=== PATIENT | male | born 1940 | race African-American/Black ===

== ENCOUNTER 2020-04-30 16:24 | Observation (INO) ==
[2020-04-30 17:26] LABS: Basophils % 0.4 % (0.0-0.8); Eosinophils # 0.1 10*3/uL (0.0-0.87); Eosinophils % 0.8 % (0.00-10.9); Hematocrit 43.3 VOL% (42.0-52.0); Hemoglobin 14.4 GM/DL (14.0-18.0); Immature Granulocytes % 0.3 %; Immature Granulocytes Absolute 0.03 #; Lymphocytes # 1.2 10*3/uL (1.4-4.0); Lymphocytes % 12.6 % (21.2-54.2); Mean Corpuscular HGB Conc 33.3 GM/DL (32-36); Mean Corpuscular Volume 83.6 FL (87-102); Mean Platelet Volume 11.2 FL (9.6-12.0); Monocytes % 6.9 % (1.7-12.7); Platelet Count 217 T/CUMM (130-400); Red Blood Count 5.18 MC/CUMM (3.8-5.5); Red Cell Distribution Width 14.1 % (9.3-17.3); White Blood Count 9.7 T/CUMM (4-12)
[2020-04-30] MEDS ORDERED: hydrALAZINE 20 MG/1 ML VIAL IV STA ×2 (17:29→18:43)
[2020-04-30] MEDS ORDERED: hydrALAZINE 20 MG/1 ML VIAL ONE (17:30)
[2020-04-30 17:44] LABS: Albumin 3.4 G/DL (3.4-5.0); Bilirubin,Total 0.6 MG/DL (0.2-1.0); Calcium 8.9 MG/DL (8.5-10.1); Osmolality,Calculated 291.5 MOS/KG (273-304); Total Protein 6.7 G/DL (6.4-8.3)
[2020-04-30] MEDS ORDERED: INSULIN LISPRO 100 UNIT/ML SUBCUT STA ×2 (17:54→19:12)
[2020-04-30] MEDS ORDERED: INSULIN LISPRO 100 UNIT/ML ONE (17:57)
[2020-04-30] MEDS: SODIUM CHLORIDE 0.9% 1,000 ML IV SCH (18:03)
[2020-04-30] MEDS ORDERED: DEXTROSE 10% 250 ML BAG IV PRN (18:52)
[2020-04-30] MEDS ORDERED: ONDANSETRON 4 MG/2 ML VIAL IV PRN (18:52)
[2020-04-30] MEDS ORDERED: ACETAMINOPHEN 325 MG TABLET PO PRN (18:52)
[2020-04-30] MEDS ORDERED: GLUCAGON 1 MG VIAL IM PRN (18:52)
[2020-04-30] MEDS ORDERED: DOCUSATE SODIUM 100 MG CAPSULE PO PRN (18:52)
[2020-04-30] MEDS ORDERED: DEXTROSE 5% NACL 0.9% 1,000 ML IV SCH (19:00)
[2020-04-30] MEDS ORDERED: LURASIDONE 40 MG TABLET PO SCH (21:00)
[2020-04-30] MEDS ORDERED: INSULIN GLARGINE 100 UNIT/ML SUBCUT SCH (21:00)
[2020-04-30] MEDS: INSULIN REGULAR 100 UNIT/ML SUBCUT SCH (23:01)
[2020-04-30] MEDS: ENOXAPARIN 30 MG/0.3 ML SYRINGE SUBCUT SCH (23:07)
[2020-04-30] MEDS: ASCORBIC ACID 500 MG TABLET PO SCH (23:08)
[2020-04-30] MEDS: ZALEPLON 5 MG CAPSULE PO PRN (23:08)
[2020-04-30] MEDS: metFORMIN 500 MG TABLET PO SCH (23:08)
[2020-04-30] MEDS: METOPROLOL TARTRATE 100 MG TABLET PO SCH (23:09)
[2020-04-30] MEDS: MAGNESIUM OXIDE 400 MG TABLET PO SCH (23:09)
[2020-04-30] MEDS: OXYBUTYNIN 5 MG TABLET PO SCH (23:10)
[2020-05-01] MEDS: SODIUM CHLORIDE 0.9% 1,000 ML IV SCH ×3 (02:47→16:23)
[2020-05-01 07:15] LABS: Basophils # 0.1 10*3/uL (0.0-0.2); Basophils % 0.5 % (0.0-0.8); Eosinophils # 0.1 10*3/uL (0.0-0.87); Eosinophils % 1.1 % (0.00-10.9); Hematocrit 39.4 VOL% (42.0-52.0); Hemoglobin 13.8 GM/DL (14.0-18.0); Immature Granulocytes % 0.6 %; Immature Granulocytes Absolute 0.06 #; Lymphocytes # 1.9 10*3/uL (1.4-4.0); Lymphocytes % 18.8 % (21.2-54.2); Mean Corpuscular Volume 81.4 FL (87-102); Monocytes % 8.3 % (1.7-12.7); Neutrophils % 70.7 % (38.7-73.9); Platelet Count 196 T/CUMM (130-400); Red Blood Count 4.84 MC/CUMM (3.8-5.5); Red Cell Distribution Width 14.1 % (9.3-17.3); White Blood Count 10.1 T/CUMM (4-12)
[2020-05-01 07:31] LABS: Bilirubin,Total 0.6 MG/DL (0.2-1.0); Calcium 8.5 MG/DL (8.5-10.1); Osmolality,Calculated 291.8 MOS/KG (273-304); Total Protein 6.4 G/DL (6.4-8.3)
[2020-05-01] MEDS: INSULIN REGULAR 100 UNIT/ML SUBCUT SCH ×4 (07:46→20:45)
[2020-05-01] MEDS ORDERED: SIMVASTATIN 40 MG TABLET PO SCH (09:00)
[2020-05-01] MEDS: SIMETHICONE CHEW 80 MG TABLET PO SCH ×3 (09:10→16:21)
[2020-05-01] MEDS: ASPIRIN 325 MG TABLET PO SCH (09:10)
[2020-05-01] MEDS: CHOLECALCIFEROL 1,000 UNIT TABLET PO SCH (09:10)
[2020-05-01] MEDS: metFORMIN 500 MG TABLET PO SCH ×2 (09:10→20:46)
[2020-05-01] MEDS: METOPROLOL TARTRATE 100 MG TABLET PO SCH ×2 (09:10→20:44)
[2020-05-01] MEDS: OXYBUTYNIN 5 MG TABLET PO SCH ×3 (09:11→20:44)
[2020-05-01] MEDS: FUROSEMIDE 40 MG TABLET PO SCH (09:11)
[2020-05-01] MEDS: ASCORBIC ACID 500 MG TABLET PO SCH ×2 (09:11→20:44)
[2020-05-01] MEDS: MAGNESIUM OXIDE 400 MG TABLET PO SCH ×2 (09:12→20:44)
[2020-05-01] MEDS ORDERED: INSULIN REGULAR 100 UNIT/ML SUBCUT ONE (09:42)
[2020-05-01] MEDS ORDERED: SODIUM CHLORIDE 0.9% 1,000 ML IV SCH (10:00)
[2020-05-01] MEDS ORDERED: INSULIN NPH 100 UNIT/ML SUBCUT ONE (11:11)
[2020-05-01] MEDS ORDERED: INSULIN GLARGINE 100 UNIT/ML SUBCUT SCH ×2 (17:30→21:00)
[2020-05-01] MEDS: ENOXAPARIN 30 MG/0.3 ML SYRINGE SUBCUT SCH (20:43)
[2020-05-01] MEDS: BUDESONIDE/FORMOTEROL 160-4.5 INHALER 6 GM INH SCH (20:51)
[2020-05-01] MEDS ORDERED: TAMSULOSIN 0.4 MG CAPSULE PO SCH (21:00)
[2020-05-01] MEDS ORDERED: LURASIDONE 40 MG TABLET PO SCH (21:00)
[2020-05-01] MEDS ORDERED: HALOPERIDOL 5 MG TABLET PO SCH (21:00)
[2020-05-02] MEDS: ZALEPLON 5 MG CAPSULE PO PRN (00:25)
[2020-05-02] MEDS: SODIUM CHLORIDE 0.9% 1,000 ML IV SCH ×2 (02:41→11:49)
[2020-05-02] MEDS ORDERED: THYROID 60 MG TABLET PO SCH (06:30)
[2020-05-02] MEDS ORDERED: MONTELUKAST 10 MG TABLET PO SCH (09:00)
[2020-05-02] MEDS ORDERED: LOSARTAN 25 MG TABLET PO SCH (09:00)
[2020-05-02] MEDS: MAGNESIUM OXIDE 400 MG TABLET PO SCH (09:07)
[2020-05-02] MEDS: ASPIRIN 325 MG TABLET PO SCH (09:07)
[2020-05-02] MEDS: SIMETHICONE CHEW 80 MG TABLET PO SCH ×2 (09:07→11:49)
[2020-05-02] MEDS: ASCORBIC ACID 500 MG TABLET PO SCH (09:08)
[2020-05-02] MEDS: CHOLECALCIFEROL 1,000 UNIT TABLET PO SCH (09:09)
[2020-05-02] MEDS: metFORMIN 500 MG TABLET PO SCH (09:09)
[2020-05-02] MEDS: METOPROLOL TARTRATE 100 MG TABLET PO SCH (09:09)
[2020-05-02] MEDS: FUROSEMIDE 40 MG TABLET PO SCH (09:09)
[2020-05-02] MEDS: OXYBUTYNIN 5 MG TABLET PO SCH (09:09)
[2020-05-02] MEDS: INSULIN REGULAR 100 UNIT/ML SUBCUT SCH ×2 (09:10→11:49)
[2020-05-02] MEDS: BUDESONIDE/FORMOTEROL 160-4.5 INHALER 6 GM INH SCH (11:00)
[2020-05-02 11:45] VITALS: BP 162/71
[2020-05-02] MEDS ORDERED: SIMVASTATIN 40 MG TABLET PO SCH (21:00)
== END 2020-05-02 12:25 | disposition home or self-care (01) ==
LOC: N.ED 16:24 → N.EDINP 16:24 → N.3E 20:44
PROVIDERS: ADMIT Internal Medicine; ATTEND Internal Medicine

== ENCOUNTER 2021-02-13 10:26 | Inpatient (IN) ==
[2021-02-13 11:15] LABS: Basophils % 0.2 % (0.0-0.8); Hematocrit 35.4 VOL% (42.0-52.0); Hemoglobin 12.2 GM/DL (14.0-18.0); Immature Granulocytes % 0.5 %; Immature Granulocytes Absolute 0.03 #; Lymphocytes # 0.5 10*3/uL (1.4-4.0); Lymphocytes % 9.1 % (21.2-54.2); Mean Corpuscular HGB Conc 34.5 GM/DL (32-36); Mean Platelet Volume 11.2 FL (9.6-12.0); Monocytes % 4.7 % (1.7-12.7); Neutrophils % 85.5 % (38.7-73.9); Platelet Count 144 T/CUMM (130-400); Red Blood Count 4.37 MC/CUMM (3.8-5.5); Red Cell Distribution Width 14.2 % (9.3-17.3); White Blood Count 5.7 T/CUMM (4-12)
[2021-02-13 11:35] LABS: Calcium 7.4 MG/DL (8.5-10.1); Osmolality,Calculated 293.4 MOS/KG (273-304); Potassium 5.3 MMOL/L (3.5-5.1)
[2021-02-13] MEDS ORDERED: LEVOFLOXACIN INJ 500 MG in PREMIX 1 EACH IV STA (11:35)
[2021-02-13] MEDS ORDERED: DEXAMETHASONE 4 MG/1 ML VIAL IV STA (11:38)
[2021-02-13 11:43] LABS: Ferritin 651.5 ng/ml (26-388)
[2021-02-13] MEDS ORDERED: GLUCAGON 1 MG VIAL IM PRN ×2 (12:01→17:05)
[2021-02-13] MEDS ORDERED: ONDANSETRON 4 MG/2 ML VIAL IV PRN (12:01)
[2021-02-13 12:06] LABS: Band Neutrophils 4 % (0-10); Hypochromasia 1+; Lymphocytes 8 % (20-55); Microcytosis 1+; Nucleated Red Blood Cells 1 (0-5); Segmented Neutrophils 85 % (50-85); Total Cells Counted 100
[2021-02-13 12:58] LABS: Risk Ratio 1.98; Thyroid Stimulating Hormone 0.717 uIU/ml (0.358-3.74)
[2021-02-13] MEDS: ENOXAPARIN 40 MG/0.4 ML SYRINGE SUBCUT SCH (14:52)
[2021-02-13] MEDS: cefTRIAXone 1,000 MG in SYRINGE 1 EACH IV SCH (14:52)
[2021-02-13] MEDS: ACETAMINOPHEN 325 MG TABLET PO PRN (14:53)
[2021-02-13] MEDS: CETIRIZINE 10 MG TABLET PO PRN (14:53)
[2021-02-13] MEDS: ASCORBIC ACID 500 MG TABLET PO SCH ×2 (14:53→20:30)
[2021-02-13] MEDS: CHOLECALCIFEROL 1,000 UNIT TABLET PO SCH (14:54)
[2021-02-13] MEDS: ZINC SULFATE 220 MG CAPSULE PO SCH (14:54)
[2021-02-13] MEDS: AZITHROMYCIN INJ 500 MG in SODIUM CHLORIDE 0.9% 250 ML IV SCH (14:54)
[2021-02-13] MEDS: SODIUM CHLORIDE 0.9% 1,000 ML IV SCH (14:57)
[2021-02-13] MEDS ORDERED: REMDESIVIR 200 MG in SODIUM CHLORIDE 0.9% 210 ML IV ONE (17:00)
[2021-02-13] MEDS: INSULIN LISPRO 100 UNIT/ML SUBCUT SCH ×2 (17:03→20:29)
[2021-02-13] MEDS ORDERED: DEXTROSE 50% 25 GM/50 ML VIAL IV PRN (17:05)
[2021-02-13] MEDS: ALBUTEROL INHALER 18 GM INH SCH ×2 (18:54→19:06)
[2021-02-13] MEDS: FAMOTIDINE 20 MG TABLET PO SCH (20:30)
[2021-02-13] MEDS: BENZONATATE 100 MG CAPSULE PO SCH (20:30)
[2021-02-14] MEDS: ALBUTEROL INHALER 18 GM INH SCH ×4 (00:16→18:41)
[2021-02-14] MEDS: INSULIN LISPRO 100 UNIT/ML SUBCUT SCH ×4 (08:08→21:52)
[2021-02-14] MEDS: ASCORBIC ACID 500 MG TABLET PO SCH ×2 (08:37→21:00)
[2021-02-14] MEDS: ZINC SULFATE 220 MG CAPSULE PO SCH (08:37)
[2021-02-14] MEDS: CHOLECALCIFEROL 1,000 UNIT TABLET PO SCH (08:38)
[2021-02-14] MEDS: BENZONATATE 100 MG CAPSULE PO SCH ×2 (08:38→21:00)
[2021-02-14] MEDS: SODIUM CHLORIDE 0.9% 1,000 ML IV SCH (08:45)
[2021-02-14] MEDS: hydrALAZINE 20 MG/1 ML VIAL IV PRN ×2 (11:43→20:00)
[2021-02-14] MEDS: ENOXAPARIN 40 MG/0.4 ML SYRINGE SUBCUT SCH (13:20)
[2021-02-14] MEDS: cefTRIAXone 1,000 MG in SYRINGE 1 EACH IV SCH (13:20)
[2021-02-14] MEDS: DEXAMETHASONE 4 MG/1 ML VIAL IV SCH (13:20)
[2021-02-14] MEDS: AZITHROMYCIN INJ 500 MG in SODIUM CHLORIDE 0.9% 250 ML IV SCH (13:21)
[2021-02-14] MEDS ORDERED: DEXTROMETHORPHAN ER 6 MG/ML 90 ML/BOTTLE PO PRN (16:09)
[2021-02-14] MEDS ORDERED: DOCUSATE SODIUM 100 MG CAPSULE PO PRN (16:11)
[2021-02-14] MEDS: REMDESIVIR 100 MG in SODIUM CHLORIDE 0.9% 100 ML IV SCH (17:03)
[2021-02-14] MEDS ORDERED: guaiFENesin/CODEINE 5 ML LIQUID PO PRN (20:53)
[2021-02-14] MEDS ORDERED: ASCORBIC ACID 500 MG TABLET PO SCH (21:00)
[2021-02-14] MEDS: LURASIDONE 40 MG TABLET PO SCH (21:00)
[2021-02-14] MEDS ORDERED: TAMSULOSIN 0.4 MG CAPSULE PO SCH (21:00)
[2021-02-14] MEDS: FAMOTIDINE 20 MG TABLET PO SCH (21:00)
[2021-02-14] MEDS: METOPROLOL TARTRATE 50 MG TABLET PO SCH (21:00)
[2021-02-14] MEDS: BUDESONIDE/FORMOTEROL 160-4.5 INHALER 6 GM INH SCH (21:00)
[2021-02-14] MEDS: OXYBUTYNIN 5 MG TABLET PO SCH (21:00)
[2021-02-14] MEDS: HALOPERIDOL 5 MG TABLET PO SCH (21:00)
[2021-02-14] MEDS: INSULIN GLARGINE 100 UNIT/ML SUBCUT SCH (21:52)
[2021-02-15] MEDS: ALBUTEROL INHALER 18 GM INH SCH ×7 (01:00→21:02)
[2021-02-15] MEDS: SODIUM CHLORIDE 0.9% 1,000 ML IV SCH (01:36)
[2021-02-15] MEDS: hydrALAZINE 20 MG/1 ML VIAL IV PRN (02:32)
[2021-02-15] MEDS: THYROID 60 MG TABLET PO SCH (06:25)
[2021-02-15] MEDS: BUDESONIDE/FORMOTEROL 160-4.5 INHALER 6 GM INH SCH ×2 (06:25→21:02)
[2021-02-15 06:50] LABS: Basophils % 0.1 % (0.0-0.8); Hemoglobin 13.8 GM/DL (14.0-18.0); Immature Granulocytes % 0.7 %; Immature Granulocytes Absolute 0.08 #; Lymphocytes # 0.6 10*3/uL (1.4-4.0); Lymphocytes % 5.5 % (21.2-54.2); Mean Corpuscular HGB Conc 36.3 GM/DL (32-36); Mean Platelet Volume 12.4 FL (9.6-12.0); Monocytes % 4.9 % (1.7-12.7); Neutrophils % 88.8 % (38.7-73.9); Platelet Count 189 T/CUMM (130-400); Red Blood Count 4.81 MC/CUMM (3.8-5.5); White Blood Count 11.3 T/CUMM (4-12)
[2021-02-15 07:10] LABS: Calcium 7.9 MG/DL (8.5-10.1); Osmolality,Calculated 274.1 MOS/KG (273-304); Potassium 5.5 MMOL/L (3.5-5.1)
[2021-02-15 07:16] LABS: Band Neutrophils 1 % (0-10); Hypochromasia 1+; Lymphocytes 6 % (20-55); Metamyelocytes 1 %; Microcytosis 1+; Segmented Neutrophils 84 % (50-85); Total Cells Counted 100
[2021-02-15 07:17] LABS: Ovalocytes Slight; Target Cells Slight
[2021-02-15 07:18] LABS: Platelet Estimate Adequate
[2021-02-15] MEDS: INSULIN LISPRO 100 UNIT/ML SUBCUT SCH ×3 (08:26→17:51)
[2021-02-15] MEDS ORDERED: SODIUM POLYSTYRENE SULFATE 15 GM/60 ML BOTTLE PO ONE (08:34)
[2021-02-15] MEDS ORDERED: LOSARTAN 25 MG TABLET PO SCH (09:00)
[2021-02-15] MEDS ORDERED: CHOLECALCIFEROL 1,000 UNIT TABLET PO SCH (09:00)
[2021-02-15 09:13] LABS: ABG Base Excess -5.3 MMOL/L (-2.5-2.5); ABG PCO2 22.3 MM HG (35-48); ABG PH 7.474 (7.35-7.45); ABG PO2 53.8 MM HG (80-95); ABG TCO2 16.7 MMOL/L (23-27)
[2021-02-15] MEDS: ASCORBIC ACID 500 MG TABLET PO SCH ×2 (09:44→20:02)
[2021-02-15] MEDS: OXYBUTYNIN 5 MG TABLET PO SCH ×2 (09:44→16:15)
[2021-02-15] MEDS: SIMVASTATIN 80 MG TABLET PO SCH (09:44)
[2021-02-15] MEDS: CHOLECALCIFEROL 1,000 UNIT TABLET PO SCH (09:44)
[2021-02-15] MEDS: BENZONATATE 100 MG CAPSULE PO SCH ×2 (09:44→20:02)
[2021-02-15] MEDS: MONTELUKAST 10 MG TABLET PO SCH (09:44)
[2021-02-15] MEDS: ZINC SULFATE 220 MG CAPSULE PO SCH (09:44)
[2021-02-15] MEDS: METOPROLOL TARTRATE 50 MG TABLET PO SCH ×2 (09:44→20:03)
[2021-02-15] MEDS: ENOXAPARIN 40 MG/0.4 ML SYRINGE SUBCUT SCH (11:15)
[2021-02-15] MEDS: cefTRIAXone 1,000 MG in SYRINGE 1 EACH IV SCH (11:20)
[2021-02-15] MEDS: DEXAMETHASONE 4 MG/1 ML VIAL IV SCH (11:20)
[2021-02-15] MEDS ORDERED: ROCURONIUM 100 MG/10 ML VIAL IV ONE ×2 (11:26→11:48)
[2021-02-15] MEDS ORDERED: ETOMIDATE 20 MG/10 ML VIAL IV ONE (11:26)
[2021-02-15 13:01] LABS: ABG Base Excess -8.8 MMOL/L (-2.5-2.5); ABG HCO3 17.4 MMOL/L (20-26); ABG Oxygen Saturation 91.1 % (95-100); ABG PH 7.239 (7.35-7.45); ABG PO2 72.6 MM HG (80-95); ABG TCO2 16.5 MMOL/L (23-27); Allen Test Positive; Pt O2 Delivery Device Ventilator
[2021-02-15] MEDS: AZITHROMYCIN INJ 500 MG in SODIUM CHLORIDE 0.9% 250 ML IV SCH (14:32)
[2021-02-15 17:05] LABS: ABG Base Excess -8.5 MMOL/L (-2.5-2.5); ABG HCO3 17.4 MMOL/L (20-26); ABG Oxygen Saturation 85.5 % (95-100); ABG PCO2 31.9 MM HG (35-48); ABG PH 7.323 (7.35-7.45); ABG PO2 54.7 MM HG (80-95); ABG TCO2 14.7 MMOL/L (23-27); Allen Test Positive; Pt O2 Delivery Device Ventilator
[2021-02-15] MEDS: REMDESIVIR 100 MG in SODIUM CHLORIDE 0.9% 100 ML IV SCH (17:19)
[2021-02-15] MEDS: fentaNYL INJ 1,250 MCG in SODIUM CHLORIDE 0.9% 225 ML IV PRN (17:32)
[2021-02-15] MEDS: MIDAZOLAM 100 MG in SODIUM CHLORIDE 0.9% 80 ML IV PRN (17:32)
[2021-02-15] MEDS ORDERED: SODIUM BICARBONATE 50 MEQ/50 ML VIAL IV ONE (17:51)
[2021-02-15] MEDS ORDERED: INSULIN REGULAR 100 UNIT/ML IV ONE (19:32)
[2021-02-15] MEDS: FAMOTIDINE 20 MG TABLET PO SCH (20:02)
[2021-02-15] MEDS: LURASIDONE 40 MG TABLET PO SCH (20:02)
[2021-02-15] MEDS: INSULIN GLARGINE 100 UNIT/ML SUBCUT SCH (20:02)
[2021-02-15] MEDS: HALOPERIDOL 5 MG TABLET PO SCH (20:02)
[2021-02-15] MEDS ORDERED: SODIUM CHLORIDE 0.9% 500 ML IV ONE (21:34)
[2021-02-16] MEDS: SODIUM CHLORIDE 0.9% 1,000 ML IV SCH (01:37)
[2021-02-16] MEDS: ALBUTEROL INHALER 18 GM INH SCH ×7 (01:40→22:21)
[2021-02-16] MEDS: INSULIN LISPRO 100 UNIT/ML SUBCUT SCH ×5 (01:49→23:51)
[2021-02-16] MEDS: ENOXAPARIN 40 MG/0.4 ML SYRINGE SUBCUT SCH (01:50)
[2021-02-16 04:41] LABS: ABG Base Excess -3.7 MMOL/L (-2.5-2.5); ABG HCO3 21.4 MMOL/L (20-26); ABG Oxygen Saturation 99.7 % (95-100); ABG PCO2 28.5 MM HG (35-48); ABG TCO2 17.2 MMOL/L (23-27); Allen Test Positive; Pt O2 Delivery Device Ventilator
[2021-02-16 05:52] LABS: Basophils % 0.1 % (0.0-0.8); Hematocrit 31.3 VOL% (42.0-52.0); Hemoglobin 10.9 GM/DL (14.0-18.0); Immature Granulocytes Absolute 0.12 #; Lymphocytes # 0.8 10*3/uL (1.4-4.0); Lymphocytes % 6.7 % (21.2-54.2); Mean Corpuscular HGB Conc 34.8 GM/DL (32-36); Mean Corpuscular Volume 79.6 FL (87-102); Mean Platelet Volume 11.9 FL (9.6-12.0); Monocytes % 5.6 % (1.7-12.7); NRBC # 0.02 10*3/uL; Neutrophils % 86.6 % (38.7-73.9); Platelet Count 112 T/CUMM (130-400); Red Blood Count 3.93 MC/CUMM (3.8-5.5); Red Cell Distribution Width 14.3 % (9.3-17.3)
[2021-02-16 06:13] LABS: Albumin 1.7 G/DL (3.4-5.0); Bilirubin,Total 0.5 MG/DL (0.2-1.0); Ferritin 494.9 ng/ml (26-388); Osmolality,Calculated 295.5 MOS/KG (273-304); Total Protein 4.2 G/DL (6.4-8.2)
[2021-02-16 06:41] LABS: Hypochromasia 1+; Lymphocytes 3 % (20-55); Microcytosis 1+; Platelet Estimate Adequate; Polychromasia Slight; Segmented Neutrophils 93 % (50-85); Total Cells Counted 100
[2021-02-16] MEDS: THYROID 60 MG TABLET PO SCH (07:05)
[2021-02-16] MEDS ORDERED: LACTATED RINGERS 1,000 ML IV ONE (08:06)
[2021-02-16] MEDS: BUDESONIDE/FORMOTEROL 160-4.5 INHALER 6 GM INH SCH ×2 (08:27→20:14)
[2021-02-16] MEDS: CHOLECALCIFEROL 1,000 UNIT TABLET PO SCH (08:41)
[2021-02-16] MEDS: ASCORBIC ACID 500 MG TABLET PO SCH ×2 (08:41→20:15)
[2021-02-16] MEDS: SIMVASTATIN 80 MG TABLET PO SCH (08:41)
[2021-02-16] MEDS: MONTELUKAST 10 MG TABLET PO SCH (08:42)
[2021-02-16] MEDS: CYANOCOBALAMIN 500 MCG TABLET PO SCH (08:42)
[2021-02-16] MEDS: ZINC SULFATE 220 MG CAPSULE PO SCH (08:42)
[2021-02-16] MEDS: HEPARIN DRIP 25,000 UNITS/500 ML PREMIX IV SCH (09:12)
[2021-02-16] MEDS: DEXAMETHASONE 4 MG/1 ML VIAL IV SCH (11:55)
[2021-02-16] MEDS: cefTRIAXone 1,000 MG in SYRINGE 1 EACH IV SCH (11:59)
[2021-02-16] MEDS: AZITHROMYCIN INJ 500 MG in SODIUM CHLORIDE 0.9% 250 ML IV SCH (12:00)
[2021-02-16] MEDS: fentaNYL INJ 1,250 MCG in SODIUM CHLORIDE 0.9% 225 ML IV PRN ×2 (13:07→22:22)
[2021-02-16 13:28] LABS: ABG HCO3 19.8 MMOL/L (20-26); ABG Oxygen Saturation 68.2 % (95-100); ABG PCO2 34.6 MM HG (35-48); ABG PH 7.363 (7.35-7.45); ABG TCO2 17.8 MMOL/L (23-27); Allen Test Positive; Pt O2 Delivery Device Ventilator
[2021-02-16 13:29] LABS: ABG PO2 37.3 MM HG (80-95)
[2021-02-16 13:44] LABS: Allen Test Positive; Pt O2 Delivery Device Ventilator
[2021-02-16 13:45] LABS: ABG Base Excess -5.2 MMOL/L (-2.5-2.5); ABG Oxygen Saturation 86.8 % (95-100); ABG PCO2 32.1 MM HG (35-48); ABG PH 7.381 (7.35-7.45); ABG PO2 53.3 MM HG (80-95); ABG TCO2 17.1 MMOL/L (23-27)
[2021-02-16] MEDS: LACTATED RINGERS 1,000 ML IV SCH (15:30)
[2021-02-16] MEDS: MIDAZOLAM 100 MG in SODIUM CHLORIDE 0.9% 80 ML IV PRN (17:05)
[2021-02-16] MEDS: LURASIDONE 40 MG TABLET PO SCH (20:14)
[2021-02-16] MEDS: FAMOTIDINE 20 MG TABLET PO SCH (20:15)
[2021-02-16] MEDS: HALOPERIDOL 5 MG TABLET PO SCH (20:15)
[2021-02-16] MEDS ORDERED: INSULIN GLARGINE 100 UNIT/ML SUBCUT SCH (21:00)
[2021-02-17 00:40] LABS: Basophils % 0.1 % (0.0-0.8); Hematocrit 30.6 VOL% (42.0-52.0); Hemoglobin 10.8 GM/DL (14.0-18.0); Immature Granulocytes % 1.1 %; Immature Granulocytes Absolute 0.21 #; Lymphocytes # 0.9 10*3/uL (1.4-4.0); Lymphocytes % 4.7 % (21.2-54.2); Mean Corpuscular HGB Conc 35.3 GM/DL (32-36); Mean Corpuscular Volume 79.3 FL (87-102); Mean Platelet Volume 12.7 FL (9.6-12.0); Monocytes % 4.6 % (1.7-12.7); NRBC # 0.03 10*3/uL; Neutrophils % 89.5 % (38.7-73.9); Platelet Count 119 T/CUMM (130-400); Red Blood Count 3.86 MC/CUMM (3.8-5.5); Red Cell Distribution Width 14.3 % (9.3-17.3); White Blood Count 19.1 T/CUMM (4-12)
[2021-02-17 00:50] LABS: Calcium 6.8 MG/DL (8.5-10.1); Osmolality,Calculated 302.5 MOS/KG (273-304)
[2021-02-17 01:07] LABS: Lymphocytes 3 % (20-55); Platelet Estimate Normal; Segmented Neutrophils 95 % (50-85); Total Cells Counted 100
[2021-02-17 01:08] LABS: Microcytosis 2+; Schistocytes Few
[2021-02-17 01:09] LABS: Hypochromasia Slight; Polychromasia Slight; Target Cells Few
[2021-02-17] MEDS: LACTATED RINGERS 1,000 ML IV SCH ×2 (04:00→14:39)
[2021-02-17 04:09] LABS: ABG Base Excess -4.7 MMOL/L (-2.5-2.5); ABG HCO3 20.5 MMOL/L (20-26); ABG Oxygen Saturation 95.9 % (95-100); ABG PCO2 35.6 MM HG (35-48); ABG PO2 81.4 MM HG (80-95); ABG TCO2 18.2 MMOL/L (23-27)
[2021-02-17] MEDS: ALBUTEROL INHALER 18 GM INH SCH ×5 (05:14→20:17)
[2021-02-17] MEDS: INSULIN LISPRO 100 UNIT/ML SUBCUT SCH ×3 (05:49→18:01)
[2021-02-17] MEDS: THYROID 60 MG TABLET PO SCH (06:01)
[2021-02-17] MEDS: HEPARIN DRIP 25,000 UNITS/500 ML PREMIX IV SCH ×2 (06:45→07:02)
[2021-02-17] MEDS: CHOLECALCIFEROL 1,000 UNIT TABLET PO SCH (08:02)
[2021-02-17] MEDS: SIMVASTATIN 80 MG TABLET PO SCH (08:02)
[2021-02-17] MEDS: ZINC SULFATE 220 MG CAPSULE PO SCH (08:02)
[2021-02-17] MEDS: MONTELUKAST 10 MG TABLET PO SCH (08:02)
[2021-02-17] MEDS: ASCORBIC ACID 500 MG TABLET PO SCH ×2 (08:02→20:19)
[2021-02-17] MEDS: BUDESONIDE/FORMOTEROL 160-4.5 INHALER 6 GM INH SCH ×2 (08:10→20:17)
[2021-02-17] MEDS: DEXAMETHASONE 4 MG/1 ML VIAL IV SCH (11:55)
[2021-02-17] MEDS: cefTRIAXone 1,000 MG in SYRINGE 1 EACH IV SCH (11:55)
[2021-02-17] MEDS: AZITHROMYCIN INJ 500 MG in SODIUM CHLORIDE 0.9% 250 ML IV SCH (12:42)
[2021-02-17] MEDS: fentaNYL INJ 1,250 MCG in SODIUM CHLORIDE 0.9% 225 ML IV PRN (14:30)
[2021-02-17] MEDS: MIDAZOLAM 100 MG in SODIUM CHLORIDE 0.9% 80 ML IV PRN (20:17)
[2021-02-17] MEDS: FAMOTIDINE 20 MG TABLET PO SCH (20:19)
[2021-02-17] MEDS: INSULIN GLARGINE 100 UNIT/ML SUBCUT SCH (20:19)
[2021-02-17] MEDS: HALOPERIDOL 5 MG TABLET PO SCH (20:19)
[2021-02-17] MEDS: LURASIDONE 40 MG TABLET PO SCH (20:19)
[2021-02-18] MEDS: LACTATED RINGERS 1,000 ML IV SCH ×3 (00:39→22:32)
[2021-02-18] MEDS: INSULIN LISPRO 100 UNIT/ML SUBCUT SCH ×4 (00:57→18:07)
[2021-02-18] MEDS: ALBUTEROL INHALER 18 GM INH SCH ×7 (00:57→22:11)
[2021-02-18 04:53] LABS: ABG Base Excess -6.2 MMOL/L (-2.5-2.5); ABG HCO3 19.3 MMOL/L (20-26); ABG Oxygen Saturation 94.9 % (95-100); ABG PCO2 37.1 MM HG (35-48); ABG PH 7.324 (7.35-7.45); ABG PO2 78.9 MM HG (80-95); ABG TCO2 17.3 MMOL/L (23-27); Allen Test Positive; Pt O2 Delivery Device Ventilator
[2021-02-18 05:56] LABS: Basophils % 0.1 % (0.0-0.8); Hematocrit 31.6 VOL% (42.0-52.0); Hemoglobin 11.1 GM/DL (14.0-18.0); Immature Granulocytes % 2.1 %; Mean Corpuscular HGB Conc 35.1 GM/DL (32-36); Mean Platelet Volume 12.2 FL (9.6-12.0); Monocytes % 4.7 % (1.7-12.7); NRBC # 0.02 10*3/uL; Neutrophils % 88.1 % (38.7-73.9); Platelet Count 149 T/CUMM (130-400); Red Cell Distribution Width 14.2 % (9.3-17.3); White Blood Count 19.1 T/CUMM (4-12)
[2021-02-18 06:40] LABS: Lymphocytes 5 % (20-55); Platelet Estimate Adequate; Segmented Neutrophils 93 % (50-85); Total Cells Counted 100
[2021-02-18 06:41] LABS: Hypochromasia Slight; Microcytosis Slight
[2021-02-18] MEDS: THYROID 60 MG TABLET PO SCH (06:42)
[2021-02-18 06:45] LABS: Calcium 6.7 MG/DL (8.5-10.1); Osmolality,Calculated 298.8 MOS/KG (273-304); Potassium 5.2 MMOL/L (3.5-5.1)
[2021-02-18] MEDS ORDERED: SODIUM CHLORIDE 0.9% 1,000 ML IV PRN (07:44)
[2021-02-18] MEDS: ZINC SULFATE 220 MG CAPSULE PO SCH (08:29)
[2021-02-18] MEDS: CHOLECALCIFEROL 1,000 UNIT TABLET PO SCH (08:29)
[2021-02-18] MEDS: BUDESONIDE/FORMOTEROL 160-4.5 INHALER 6 GM INH SCH ×2 (08:29→18:07)
[2021-02-18] MEDS: CYANOCOBALAMIN 500 MCG TABLET PO SCH (08:29)
[2021-02-18] MEDS: CETIRIZINE 10 MG TABLET PO PRN (08:29)
[2021-02-18] MEDS: ASCORBIC ACID 500 MG TABLET PO SCH ×2 (08:30→20:31)
[2021-02-18] MEDS: SIMVASTATIN 80 MG TABLET PO SCH (09:09)
[2021-02-18] MEDS: MONTELUKAST 10 MG TABLET PO SCH (09:28)
[2021-02-18] MEDS: HEPARIN DRIP 25,000 UNITS/500 ML PREMIX IV SCH (10:13)
[2021-02-18 11:26] LABS: Hepatitis B Core IgM Quant 0.09 Index; Hepatitis B Surface Ag Quant < 0.10 Index; Hepatitis B Surface Ag Result Non-Reactive (NonReactive); Hepatitis C Virus Ab Quant 0.08 Index; Hepatitis C Virus Ab Result Non-Reactive (NonReactive)
[2021-02-18] MEDS: cefTRIAXone 1,000 MG in SYRINGE 1 EACH IV SCH (12:21)
[2021-02-18] MEDS: DEXAMETHASONE 4 MG/1 ML VIAL IV SCH (12:21)
[2021-02-18] MEDS: fentaNYL INJ 1,250 MCG in SODIUM CHLORIDE 0.9% 225 ML IV PRN ×2 (12:22→23:51)
[2021-02-18] MEDS: AZITHROMYCIN INJ 500 MG in SODIUM CHLORIDE 0.9% 250 ML IV SCH (12:27)
[2021-02-18] MEDS ORDERED: HEPARIN 10,000 UNIT/10 ML VIAL IV SCH (16:15)
[2021-02-18] MEDS: FAMOTIDINE 20 MG TABLET PO SCH (20:30)
[2021-02-18] MEDS: HALOPERIDOL 5 MG TABLET PO SCH (20:31)
[2021-02-18] MEDS: INSULIN GLARGINE 100 UNIT/ML SUBCUT SCH (20:32)
[2021-02-18] MEDS: LURASIDONE 40 MG TABLET PO SCH (20:32)
[2021-02-19] MEDS: INSULIN LISPRO 100 UNIT/ML SUBCUT SCH ×5 (00:12→23:39)
[2021-02-19 03:14] LABS: Basophils % 0.1 % (0.0-0.8); Hemoglobin 10.6 GM/DL (14.0-18.0); Immature Granulocytes % 2.7 %; Immature Granulocytes Absolute 0.44 #; Lymphocytes # 0.5 10*3/uL (1.4-4.0); Lymphocytes % 3.1 % (21.2-54.2); Mean Corpuscular HGB Conc 36.6 GM/DL (32-36); Mean Corpuscular Volume 77.3 FL (87-102); Mean Platelet Volume 12.3 FL (9.6-12.0); Monocytes % 3.4 % (1.7-12.7); NRBC # 0.02 10*3/uL; Neutrophils % 90.7 % (38.7-73.9); Platelet Count 148 T/CUMM (130-400); Red Blood Count 3.75 MC/CUMM (3.8-5.5); Red Cell Distribution Width 14.4 % (9.3-17.3); White Blood Count 16.1 T/CUMM (4-12)
[2021-02-19 03:35] LABS: ABG HCO3 19.3 MMOL/L (20-26); ABG Oxygen Saturation 92.7 % (95-100); ABG PCO2 33.2 MM HG (35-48); ABG PH 7.382 (7.35-7.45); ABG PO2 68.1 MM HG (80-95); ABG TCO2 20.3 MMOL/L (23-27); Allen Test Positive; Pt O2 Delivery Device Ventilator
[2021-02-19 03:42] LABS: Band Neutrophils 5 % (0-10); Lymphocytes 4 % (20-55); Platelet Estimate Adequate; Segmented Neutrophils 88 % (50-85); Total Cells Counted 100
[2021-02-19 03:45] LABS: Albumin 1.7 G/DL (3.4-5.0); Bilirubin,Total 0.6 MG/DL (0.2-1.0); Calcium 6.7 MG/DL (8.5-10.1); Osmolality,Calculated 301.7 MOS/KG (273-304); Potassium 4.5 MMOL/L (3.5-5.1); Total Protein 4.9 G/DL (6.4-8.2)
[2021-02-19] MEDS: ALBUTEROL INHALER 18 GM INH SCH ×6 (04:16→23:39)
[2021-02-19] MEDS: MIDAZOLAM 100 MG in SODIUM CHLORIDE 0.9% 80 ML IV PRN (06:13)
[2021-02-19] MEDS: HEPARIN DRIP 25,000 UNITS/500 ML PREMIX IV SCH ×2 (06:13→09:37)
[2021-02-19] MEDS: LACTATED RINGERS 1,000 ML IV SCH ×3 (06:44→17:17)
[2021-02-19] MEDS: THYROID 60 MG TABLET PO SCH (06:45)
[2021-02-19] MEDS: MONTELUKAST 10 MG TABLET PO SCH (08:02)
[2021-02-19] MEDS: CHOLECALCIFEROL 1,000 UNIT TABLET PO SCH (08:02)
[2021-02-19] MEDS: ZINC SULFATE 220 MG CAPSULE PO SCH (08:02)
[2021-02-19] MEDS: BUDESONIDE/FORMOTEROL 160-4.5 INHALER 6 GM INH SCH ×2 (08:02→20:54)
[2021-02-19] MEDS: SIMVASTATIN 80 MG TABLET PO SCH (08:02)
[2021-02-19] MEDS: ASCORBIC ACID 500 MG TABLET PO SCH ×2 (08:02→21:50)
[2021-02-19] MEDS: DEXAMETHASONE 4 MG/1 ML VIAL IV SCH (12:28)
[2021-02-19] MEDS: cefTRIAXone 1,000 MG in SYRINGE 1 EACH IV SCH (12:28)
[2021-02-19] MEDS ORDERED: HEPARIN 5,000 UNIT/1 ML VIAL IV ONE (13:19)
[2021-02-19] MEDS: hydrALAZINE 20 MG/1 ML VIAL IV PRN (13:33)
[2021-02-19] MEDS ORDERED: MORPHINE 4 MG/1 ML VIAL IV PRN (17:39)
[2021-02-19] MEDS: fentaNYL INJ 1,250 MCG in SODIUM CHLORIDE 0.9% 225 ML IV PRN (19:42)
[2021-02-19] MEDS: LURASIDONE 40 MG TABLET PO SCH (21:50)
[2021-02-19] MEDS: FAMOTIDINE 20 MG TABLET PO SCH (21:51)
[2021-02-19] MEDS: HALOPERIDOL 5 MG TABLET PO SCH (21:51)
[2021-02-19] MEDS: INSULIN GLARGINE 100 UNIT/ML SUBCUT SCH (22:53)
[2021-02-20] MEDS: ACETAMINOPHEN 325 MG TABLET PO PRN ×2 (00:30→08:30)
[2021-02-20 03:25] LABS: ABG Base Excess -2.4 MMOL/L (-2.5-2.5); ABG HCO3 22.3 MMOL/L (20-26); ABG Oxygen Saturation 91.5 % (95-100); ABG PCO2 35.6 MM HG (35-48); ABG PH 7.398 (7.35-7.45); ABG PO2 62.2 MM HG (80-95); ABG TCO2 19.8 MMOL/L (23-27); Allen Test Positive; Pt O2 Delivery Device Ventilator
[2021-02-20] MEDS: ALBUTEROL INHALER 18 GM INH SCH ×6 (04:32→23:50)
[2021-02-20] MEDS: fentaNYL INJ 1,250 MCG in SODIUM CHLORIDE 0.9% 225 ML IV PRN ×3 (05:03→23:50)
[2021-02-20 05:47] LABS: Basophils % 0.3 % (0.0-0.8); Hemoglobin 10.6 GM/DL (14.0-18.0); Immature Granulocytes % 1.7 %; Immature Granulocytes Absolute 0.17 #; Lymphocytes # 0.3 10*3/uL (1.4-4.0); Lymphocytes % 3.2 % (21.2-54.2); Mean Corpuscular HGB Conc 35.3 GM/DL (32-36); Mean Corpuscular Volume 77.7 FL (87-102); Mean Platelet Volume 11.7 FL (9.6-12.0); Monocytes % 2.8 % (1.7-12.7); NRBC # 0.24 10*3/uL; Platelet Count 142 T/CUMM (130-400); Red Blood Count 3.86 MC/CUMM (3.8-5.5); Red Cell Distribution Width 14.2 % (9.3-17.3); White Blood Count 10.3 T/CUMM (4-12)
[2021-02-20 06:02] LABS: Calcium 6.8 MG/DL (8.5-10.1); Osmolality,Calculated 287.8 MOS/KG (273-304); Potassium 4.1 MMOL/L (3.5-5.1)
[2021-02-20 06:19] LABS: Band Neutrophils 11 % (0-10); Lymphocytes 8 % (20-55); Metamyelocytes 2 %; Myelocytes 1 %; Nucleated Red Blood Cells 1 (0-5); Segmented Neutrophils 77 % (50-85); Total Cells Counted 100
[2021-02-20 06:20] LABS: Hypochromasia 1+; Microcytosis 1+; Platelet Estimate Adequate; Polychromasia Slight
[2021-02-20] MEDS ORDERED: LACTATED RINGERS 250 ML IV ONE (06:22)
[2021-02-20] MEDS: INSULIN LISPRO 100 UNIT/ML SUBCUT SCH ×3 (07:00→17:51)
[2021-02-20] MEDS: THYROID 60 MG TABLET PO SCH (07:00)
[2021-02-20] MEDS ORDERED: PHENYLEPHRINE DRIP 40 MG/250 ML PREMIX IV ONE (08:09)
[2021-02-20] MEDS: SIMVASTATIN 80 MG TABLET PO SCH (08:30)
[2021-02-20] MEDS: CHOLECALCIFEROL 1,000 UNIT TABLET PO SCH (08:30)
[2021-02-20] MEDS: MONTELUKAST 10 MG TABLET PO SCH (08:30)
[2021-02-20] MEDS: ASCORBIC ACID 500 MG TABLET PO SCH ×2 (08:30→20:12)
[2021-02-20] MEDS: HEPARIN DRIP 25,000 UNITS/500 ML PREMIX IV SCH (08:31)
[2021-02-20] MEDS: BUDESONIDE/FORMOTEROL 160-4.5 INHALER 6 GM INH SCH ×2 (08:31→19:50)
[2021-02-20] MEDS: ZINC SULFATE 220 MG CAPSULE PO SCH (08:32)
[2021-02-20] MEDS: CYANOCOBALAMIN 500 MCG TABLET PO SCH (08:32)
[2021-02-20] MEDS: DEXAMETHASONE 4 MG/1 ML VIAL IV SCH (12:32)
[2021-02-20] MEDS ORDERED: PHENYLEPHRINE DRIP 40 MG/250 ML PREMIX IV PRN (12:33)
[2021-02-20] MEDS: ALBUMIN 25% 25 GM in PREMIX 1 EACH IV SCH ×2 (13:05→20:12)
[2021-02-20] MEDS: PIPERACILLIN/TAZOBACTAM 3,375 MG in SODIUM CHLORIDE 0.9% 100 ML IV SCH (13:05)
[2021-02-20] MEDS: FAMOTIDINE 20 MG TABLET PO SCH (20:12)
[2021-02-20] MEDS: HALOPERIDOL 5 MG TABLET PO SCH (20:12)
[2021-02-20] MEDS: LURASIDONE 40 MG TABLET PO SCH (20:12)
[2021-02-20] MEDS: INSULIN GLARGINE 100 UNIT/ML SUBCUT SCH (20:27)
[2021-02-20] MEDS: LACTATED RINGERS 1,000 ML IV SCH (22:52)
[2021-02-21] MEDS: INSULIN LISPRO 100 UNIT/ML SUBCUT SCH ×4 (00:24→18:00)
[2021-02-21] MEDS: hydrALAZINE 20 MG/1 ML VIAL IV PRN (00:25)
[2021-02-21] MEDS: PIPERACILLIN/TAZOBACTAM 3,375 MG in SODIUM CHLORIDE 0.9% 100 ML IV SCH (00:25)
[2021-02-21] MEDS: ALBUTEROL INHALER 18 GM INH SCH ×5 (03:17→18:52)
[2021-02-21] MEDS: ALBUMIN 25% 25 GM in PREMIX 1 EACH IV SCH ×3 (04:08→20:01)
[2021-02-21 04:35] LABS: ABG Base Excess -1.8 MMOL/L (-2.5-2.5); ABG HCO3 22.9 MMOL/L (20-26); ABG Oxygen Saturation 96.9 % (95-100); ABG PCO2 39.2 MM HG (35-48); ABG PH 7.378 (7.35-7.45); ABG TCO2 21.2 MMOL/L (23-27); Allen Test Positive; Pt O2 Delivery Device Ventilator
[2021-02-21 04:57] LABS: Basophils % 0.1 % (0.0-0.8); Hemoglobin 8.3 GM/DL (14.0-18.0); Immature Granulocytes % 1.5 %; Immature Granulocytes Absolute 0.21 #; Lymphocytes # 0.4 10*3/uL (1.4-4.0); Lymphocytes % 2.5 % (21.2-54.2); Mean Corpuscular HGB Conc 36.1 GM/DL (32-36); Mean Corpuscular Volume 76.7 FL (87-102); Mean Platelet Volume 12.3 FL (9.6-12.0); NRBC # 0.03 10*3/uL; Neutrophils % 92.9 % (38.7-73.9); Platelet Count 102 T/CUMM (130-400); Red Cell Distribution Width 14.3 % (9.3-17.3); White Blood Count 14.3 T/CUMM (4-12)
[2021-02-21 05:27] LABS: Band Neutrophils 3 % (0-10); Hypochromasia 2+; Lymphocytes 2 % (20-55); Microcytosis 1+; Segmented Neutrophils 93 % (50-85); Target Cells Few; Total Cells Counted 100
[2021-02-21 05:28] LABS: Ovalocytes Slight
[2021-02-21 05:34] LABS: Calcium 6.4 MG/DL (8.5-10.1); Osmolality,Calculated 292.8 MOS/KG (273-304); Potassium 4.2 MMOL/L (3.5-5.1)
[2021-02-21] MEDS: THYROID 60 MG TABLET PO SCH (06:23)
[2021-02-21] MEDS: BUDESONIDE/FORMOTEROL 160-4.5 INHALER 6 GM INH SCH ×2 (06:24→19:58)
[2021-02-21] MEDS: MONTELUKAST 10 MG TABLET PO SCH (08:20)
[2021-02-21] MEDS: ASCORBIC ACID 500 MG TABLET PO SCH ×2 (08:20→20:04)
[2021-02-21] MEDS: SIMVASTATIN 80 MG TABLET PO SCH (08:20)
[2021-02-21] MEDS: ZINC SULFATE 220 MG CAPSULE PO SCH (08:20)
[2021-02-21] MEDS: CHOLECALCIFEROL 1,000 UNIT TABLET PO SCH (08:20)
[2021-02-21] MEDS: HEPARIN DRIP 25,000 UNITS/500 ML PREMIX IV SCH (08:30)
[2021-02-21] MEDS: fentaNYL INJ 1,250 MCG in SODIUM CHLORIDE 0.9% 225 ML IV PRN ×2 (11:02→22:30)
[2021-02-21] MEDS: MEROPENEM 500 MG in SODIUM CHLORIDE 0.9% 100 ML IV SCH (11:24)
[2021-02-21] MEDS: DEXAMETHASONE 4 MG/1 ML VIAL IV SCH (12:36)
[2021-02-21] MEDS: INSULIN GLARGINE 100 UNIT/ML SUBCUT SCH (20:02)
[2021-02-21] MEDS: HALOPERIDOL 5 MG TABLET PO SCH (20:04)
[2021-02-21] MEDS: FAMOTIDINE 20 MG TABLET PO SCH (20:04)
[2021-02-21] MEDS: LURASIDONE 40 MG TABLET PO SCH (20:04)
[2021-02-21] MEDS: LACTATED RINGERS 1,000 ML IV SCH (21:05)
[2021-02-22] MEDS: MEROPENEM 500 MG in SODIUM CHLORIDE 0.9% 100 ML IV SCH ×3 (00:08→23:31)
[2021-02-22] MEDS: ALBUTEROL INHALER 18 GM INH SCH ×7 (00:08→23:39)
[2021-02-22] MEDS: INSULIN LISPRO 100 UNIT/ML SUBCUT SCH ×5 (00:27→23:30)
[2021-02-22] MEDS: ALBUMIN 25% 25 GM in PREMIX 1 EACH IV SCH (03:45)
[2021-02-22 04:51] LABS: Basophils % 0.1 % (0.0-0.8); Hematocrit 23.2 VOL% (42.0-52.0); Hemoglobin 8.2 GM/DL (14.0-18.0); Immature Granulocytes % 1.6 %; Immature Granulocytes Absolute 0.28 #; Lymphocytes # 0.3 10*3/uL (1.4-4.0); Lymphocytes % 1.8 % (21.2-54.2); Mean Corpuscular HGB Conc 35.3 GM/DL (32-36); Mean Corpuscular Volume 78.4 FL (87-102); Mean Platelet Volume 12.4 FL (9.6-12.0); Monocytes % 2.5 % (1.7-12.7); NRBC # 0.06 10*3/uL; Platelet Count 114 T/CUMM (130-400); Red Blood Count 2.96 MC/CUMM (3.8-5.5); Red Cell Distribution Width 14.5 % (9.3-17.3); White Blood Count 17.1 T/CUMM (4-12)
[2021-02-22 05:00] LABS: ABG Base Excess -0.2 MMOL/L (-2.5-2.5); ABG HCO3 24.2 MMOL/L (20-26); ABG Oxygen Saturation 93.7 % (95-100); ABG PCO2 41.6 MM HG (35-48); ABG PH 7.384 (7.35-7.45); ABG PO2 67.8 MM HG (80-95); ABG TCO2 23.2 MMOL/L (23-27)
[2021-02-22] MEDS: hydrALAZINE 20 MG/1 ML VIAL IV PRN ×2 (06:10→14:14)
[2021-02-22] MEDS: BUDESONIDE/FORMOTEROL 160-4.5 INHALER 6 GM INH SCH ×2 (06:17→23:39)
[2021-02-22] MEDS: THYROID 60 MG TABLET PO SCH (06:17)
[2021-02-22 06:36] LABS: Band Neutrophils 4 % (0-10); Hypochromasia 1+; Lymphocytes 2 % (20-55); Segmented Neutrophils 91 % (50-85); Total Cells Counted 100
[2021-02-22 06:37] LABS: Microcytosis 1+; Ovalocytes Slight; Platelet Estimate Adequate; Target Cells Few
[2021-02-22 06:39] LABS: Albumin 2.4 G/DL (3.4-5.0); Bilirubin,Total 0.4 MG/DL (0.2-1.0); Calcium 7.6 MG/DL (8.5-10.1); Osmolality,Calculated 288.2 MOS/KG (273-304); Potassium 4.5 MMOL/L (3.5-5.1); Total Protein 5.4 G/DL (6.4-8.2)
[2021-02-22] MEDS: SIMVASTATIN 80 MG TABLET PO SCH (08:09)
[2021-02-22] MEDS: CHOLECALCIFEROL 1,000 UNIT TABLET PO SCH (08:09)
[2021-02-22] MEDS: CYANOCOBALAMIN 500 MCG TABLET PO SCH (08:09)
[2021-02-22] MEDS: ZINC SULFATE 220 MG CAPSULE PO SCH (08:10)
[2021-02-22] MEDS: MONTELUKAST 10 MG TABLET PO SCH (08:10)
[2021-02-22] MEDS: ASCORBIC ACID 500 MG TABLET PO SCH ×2 (08:10→20:11)
[2021-02-22] MEDS: HEPARIN DRIP 25,000 UNITS/500 ML PREMIX IV SCH ×2 (08:12→23:35)
[2021-02-22] MEDS: MIDAZOLAM 100 MG in SODIUM CHLORIDE 0.9% 80 ML IV PRN (08:13)
[2021-02-22] MEDS: fentaNYL INJ 1,250 MCG in SODIUM CHLORIDE 0.9% 225 ML IV PRN ×2 (08:14→18:03)
[2021-02-22] MEDS: METOPROLOL TARTRATE 50 MG TABLET PO SCH ×2 (11:38→20:11)
[2021-02-22] MEDS: DEXAMETHASONE 4 MG/1 ML VIAL IV SCH (11:38)
[2021-02-22] MEDS: HALOPERIDOL 5 MG TABLET PO SCH (20:10)
[2021-02-22] MEDS: LURASIDONE 40 MG TABLET PO SCH (20:11)
[2021-02-22] MEDS: INSULIN GLARGINE 100 UNIT/ML SUBCUT SCH (20:11)
[2021-02-22] MEDS: FAMOTIDINE 20 MG TABLET PO SCH (20:11)
[2021-02-23 02:36] LABS: Basophils % 0.2 % (0.0-0.8); Hematocrit 25.4 VOL% (42.0-52.0); Hemoglobin 8.9 GM/DL (14.0-18.0); Immature Granulocytes Absolute 0.37 #; Lymphocytes # 0.3 10*3/uL (1.4-4.0); Lymphocytes % 1.6 % (21.2-54.2); Mean Corpuscular Volume 78.4 FL (87-102); Mean Platelet Volume 13.3 FL (9.6-12.0); Monocytes % 3.1 % (1.7-12.7); NRBC # 0.05 10*3/uL; Neutrophils % 93.1 % (38.7-73.9); Platelet Count 113 T/CUMM (130-400); Red Blood Count 3.24 MC/CUMM (3.8-5.5); Red Cell Distribution Width 14.4 % (9.3-17.3)
[2021-02-23 02:51] LABS: Albumin 2.1 G/DL (3.4-5.0); Bilirubin,Total 0.5 MG/DL (0.2-1.0); Calcium 7.4 MG/DL (8.5-10.1); Osmolality,Calculated 294.8 MOS/KG (273-304); Potassium 4.4 MMOL/L (3.5-5.1)
[2021-02-23 03:13] LABS: ABG HCO3 23.6 MMOL/L (20-26); ABG Oxygen Saturation 98.8 % (95-100); ABG PCO2 40.3 MM HG (35-48); ABG PH 7.382 (7.35-7.45)
[2021-02-23 03:52] LABS: Band Neutrophils 1 % (0-10); Lymphocytes 1 % (20-55); Nucleated Red Blood Cells 1 (0-5); Segmented Neutrophils 96 % (50-85)
[2021-02-23 03:53] LABS: Hypochromasia 2+; Platelet Estimate Decreased
[2021-02-23 03:54] LABS: Target Cells 1+; Tear Drop Cells Few
[2021-02-23 03:55] LABS: Total Cells Counted 100
[2021-02-23] MEDS: ALBUTEROL INHALER 18 GM INH SCH ×5 (05:58→19:22)
[2021-02-23] MEDS: INSULIN LISPRO 100 UNIT/ML SUBCUT SCH ×4 (05:59→23:54)
[2021-02-23] MEDS: fentaNYL INJ 1,250 MCG in SODIUM CHLORIDE 0.9% 225 ML IV PRN ×2 (05:59→15:46)
[2021-02-23] MEDS ORDERED: fentaNYL INJ 1,250 MCG in SODIUM CHLORIDE 0.9% 225 ML IV PRN (06:02)
[2021-02-23] MEDS: HEPARIN DRIP 25,000 UNITS/500 ML PREMIX IV SCH ×2 (06:33→09:20)
[2021-02-23] MEDS: BUDESONIDE/FORMOTEROL 160-4.5 INHALER 6 GM INH SCH ×2 (08:20→19:22)
[2021-02-23] MEDS: MONTELUKAST 10 MG TABLET PO SCH (08:46)
[2021-02-23] MEDS: ZINC SULFATE 220 MG CAPSULE PO SCH (08:46)
[2021-02-23] MEDS: ASCORBIC ACID 500 MG TABLET PO SCH ×2 (08:46→20:47)
[2021-02-23] MEDS: CHOLECALCIFEROL 1,000 UNIT TABLET PO SCH (08:46)
[2021-02-23] MEDS: THYROID 60 MG TABLET PO SCH (08:47)
[2021-02-23] MEDS: SIMVASTATIN 80 MG TABLET PO SCH (08:47)
[2021-02-23] MEDS: METOPROLOL TARTRATE 50 MG TABLET PO SCH ×2 (08:48→20:47)
[2021-02-23] MEDS ORDERED: HEPARIN 5,000 UNIT/1 ML VIAL IV ONE (09:49)
[2021-02-23] MEDS: MEROPENEM 500 MG in SODIUM CHLORIDE 0.9% 100 ML IV SCH (11:04)
[2021-02-23] MEDS: hydrALAZINE 20 MG/1 ML VIAL IV PRN (11:04)
[2021-02-23] MEDS: ROCURONIUM 500 MG in SODIUM CHLORIDE 0.9% 500 ML IV PRN (14:30)
[2021-02-23] MEDS: DEXAMETHASONE 4 MG/1 ML VIAL IV SCH (14:36)
[2021-02-23 15:23] LABS: ABG Base Excess 1.5 MMOL/L (-2.5-2.5); ABG HCO3 23.9 MMOL/L (20-26); ABG Oxygen Saturation 27.7 % (95-100); ABG PCO2 45.1 MM HG (35-48); ABG PH 7.386 (7.35-7.45); ABG TCO2 23.5 MMOL/L (23-27)
[2021-02-23 15:24] LABS: ABG PO2 20.6 MM HG (80-95)
[2021-02-23] MEDS: MIDAZOLAM 100 MG in SODIUM CHLORIDE 0.9% 80 ML IV SCH (16:01)
[2021-02-23 17:11] LABS: ABG Base Excess -0.6 MMOL/L (-2.5-2.5); ABG HCO3 23.9 MMOL/L (20-26); ABG Oxygen Saturation 95.1 % (95-100); ABG PCO2 44.2 MM HG (35-48); ABG PH 7.361 (7.35-7.45); ABG PO2 80.3 MM HG (80-95); ABG TCO2 22.5 MMOL/L (23-27)
[2021-02-23] MEDS: HALOPERIDOL 5 MG TABLET PO SCH (20:46)
[2021-02-23] MEDS: INSULIN GLARGINE 100 UNIT/ML SUBCUT SCH (20:47)
[2021-02-23] MEDS: LURASIDONE 40 MG TABLET PO SCH (20:47)
[2021-02-23] MEDS: FAMOTIDINE 20 MG TABLET PO SCH (20:47)
[2021-02-24] MEDS: MEROPENEM 500 MG in SODIUM CHLORIDE 0.9% 100 ML IV SCH (00:06)
[2021-02-24] MEDS: ALBUTEROL INHALER 18 GM INH SCH ×6 (00:07→18:10)
[2021-02-24] MEDS: fentaNYL INJ 2,500 MCG in SODIUM CHLORIDE 0.9% 75 ML IV PRN (01:35)
[2021-02-24] MEDS: fentaNYL INJ 1,250 MCG in SODIUM CHLORIDE 0.9% 225 ML IV PRN (01:35)
[2021-02-24] MEDS: ROCURONIUM 500 MG in SODIUM CHLORIDE 0.9% 500 ML IV PRN (01:37)
[2021-02-24] MEDS: ROCURONIUM 1,000 MG in SODIUM CHLORIDE 0.9% 175 ML IV PRN (01:37)
[2021-02-24 04:15] LABS: Basophils % 0.1 % (0.0-0.8); Hematocrit 26.7 VOL% (42.0-52.0); Hemoglobin 9.4 GM/DL (14.0-18.0); Immature Granulocytes % 1.6 %; Immature Granulocytes Absolute 0.34 #; Lymphocytes # 0.3 10*3/uL (1.4-4.0); Lymphocytes % 1.5 % (21.2-54.2); Mean Corpuscular HGB Conc 35.2 GM/DL (32-36); Mean Corpuscular Volume 78.8 FL (87-102); Monocytes % 4.1 % (1.7-12.7); NRBC # 0.03 10*3/uL; Neutrophils % 92.7 % (38.7-73.9); Platelet Count 109 T/CUMM (130-400); Red Blood Count 3.39 MC/CUMM (3.8-5.5); Red Cell Distribution Width 14.7 % (9.3-17.3); White Blood Count 21.2 T/CUMM (4-12)
[2021-02-24] MEDS: MIDAZOLAM 100 MG in SODIUM CHLORIDE 0.9% 80 ML IV SCH ×2 (04:21→18:43)
[2021-02-24 04:32] LABS: Albumin 1.9 G/DL (3.4-5.0); Bilirubin,Total 0.9 MG/DL (0.2-1.0); Calcium 7.8 MG/DL (8.5-10.1); Osmolality,Calculated 291.4 MOS/KG (273-304); Potassium 5.4 MMOL/L (3.5-5.1); Total Protein 5.2 G/DL (6.4-8.2)
[2021-02-24 04:33] LABS: Hypochromasia 1+; Lymphocytes 1 % (20-55); Microcytosis 1+; Segmented Neutrophils 93 % (50-85); Total Cells Counted 100
[2021-02-24 05:47] LABS: Allen Test Positive; Pt O2 Delivery Device Ventilator
[2021-02-24 05:48] LABS: ABG Base Excess -2.3 MMOL/L (-2.5-2.5); ABG HCO3 22.5 MMOL/L (20-26); ABG Oxygen Saturation 95.8 % (95-100); ABG PCO2 40.7 MM HG (35-48); ABG PO2 82.2 MM HG (80-95); ABG TCO2 21.2 MMOL/L (23-27)
[2021-02-24] MEDS: THYROID 60 MG TABLET PO SCH (06:15)
[2021-02-24] MEDS: INSULIN LISPRO 100 UNIT/ML SUBCUT SCH ×3 (06:16→18:24)
[2021-02-24] MEDS: BUDESONIDE/FORMOTEROL 160-4.5 INHALER 6 GM INH SCH ×2 (08:10→18:15)
[2021-02-24] MEDS: SIMVASTATIN 80 MG TABLET PO SCH (08:10)
[2021-02-24] MEDS: CHOLECALCIFEROL 1,000 UNIT TABLET PO SCH (08:11)
[2021-02-24] MEDS: ASCORBIC ACID 500 MG TABLET PO SCH ×2 (08:11→20:25)
[2021-02-24] MEDS: ZINC SULFATE 220 MG CAPSULE PO SCH (08:11)
[2021-02-24] MEDS: CYANOCOBALAMIN 500 MCG TABLET PO SCH (08:11)
[2021-02-24] MEDS: METOPROLOL TARTRATE 50 MG TABLET PO SCH ×2 (08:11→20:24)
[2021-02-24] MEDS: MONTELUKAST 10 MG TABLET PO SCH (08:11)
[2021-02-24] MEDS ORDERED: LEVOFLOXACIN INJ 750 MG in PREMIX 1 EACH IV ONE (10:15)
[2021-02-24] MEDS: METOCLOPRAMIDE 10 MG/2 ML VIAL IV SCH ×2 (12:09→18:09)
[2021-02-24] MEDS: HEPARIN DRIP 25,000 UNITS/500 ML PREMIX IV SCH (12:59)
[2021-02-24] MEDS: HALOPERIDOL 5 MG TABLET PO SCH (20:24)
[2021-02-24] MEDS: LURASIDONE 40 MG TABLET PO SCH (20:24)
[2021-02-24] MEDS: INSULIN GLARGINE 100 UNIT/ML SUBCUT SCH (20:24)
[2021-02-24] MEDS: FAMOTIDINE 20 MG TABLET PO SCH (20:24)
[2021-02-25] MEDS: ALBUTEROL INHALER 18 GM INH SCH ×6 (01:12→20:03)
[2021-02-25] MEDS: METOCLOPRAMIDE 10 MG/2 ML VIAL IV SCH ×4 (01:13→17:14)
[2021-02-25] MEDS: INSULIN LISPRO 100 UNIT/ML SUBCUT SCH ×4 (01:13→17:17)
[2021-02-25 03:06] LABS: ABG Base Excess -3.7 MMOL/L (-2.5-2.5); ABG HCO3 21.3 MMOL/L (20-26); ABG Oxygen Saturation 91.9 % (95-100); ABG PCO2 36.2 MM HG (35-48); ABG PH 7.373 (7.35-7.45); ABG PO2 66.1 MM HG (80-95); ABG TCO2 19.2 MMOL/L (23-27)
[2021-02-25 03:58] LABS: Basophils % 0.1 % (0.0-0.8); Eosinophils # 0.1 10*3/uL (0.0-0.87); Eosinophils % 0.4 % (0.00-10.9); Hematocrit 25.2 VOL% (42.0-52.0); Hemoglobin 8.8 GM/DL (14.0-18.0); Immature Granulocytes % 2.8 %; Immature Granulocytes Absolute 0.73 #; Lymphocytes # 0.6 10*3/uL (1.4-4.0); Lymphocytes % 2.3 % (21.2-54.2); Mean Corpuscular HGB Conc 34.9 GM/DL (32-36); Mean Corpuscular Volume 78.8 FL (87-102); Mean Platelet Volume 12.7 FL (9.6-12.0); Monocytes % 3.4 % (1.7-12.7); NRBC # 0.04 10*3/uL; Platelet Count 128 T/CUMM (130-400); Red Cell Distribution Width 14.5 % (9.3-17.3); White Blood Count 25.8 T/CUMM (4-12)
[2021-02-25 04:15] LABS: Albumin 1.8 G/DL (3.4-5.0); Bilirubin,Total 0.5 MG/DL (0.2-1.0); Calcium 7.4 MG/DL (8.5-10.1); Osmolality,Calculated 296.2 MOS/KG (273-304); Potassium 4.4 MMOL/L (3.5-5.1); Total Protein 5.1 G/DL (6.4-8.2)
[2021-02-25 04:20] LABS: Eosinophils 2 % (0-10); Hypochromasia 1+; Lymphocytes 3 % (20-55); Myelocytes 1 %; Segmented Neutrophils 89 % (50-85); Total Cells Counted 100
[2021-02-25 04:21] LABS: Microcytosis 1+
[2021-02-25 04:23] LABS: Target Cells Few
[2021-02-25 04:24] LABS: Platelet Estimate Adequate
[2021-02-25] MEDS: MIDAZOLAM 100 MG in SODIUM CHLORIDE 0.9% 80 ML IV PRN (04:33)
[2021-02-25] MEDS: fentaNYL INJ 2,500 MCG in SODIUM CHLORIDE 0.9% 75 ML IV PRN (05:50)
[2021-02-25 06:05] VITALS: BP 152/65
[2021-02-25] MEDS: THYROID 60 MG TABLET PO SCH (07:28)
[2021-02-25] MEDS: BUDESONIDE/FORMOTEROL 160-4.5 INHALER 6 GM INH SCH ×2 (07:28→20:03)
[2021-02-25] MEDS: HEPARIN DRIP 25,000 UNITS/500 ML PREMIX IV SCH ×2 (07:29→14:06)
[2021-02-25] MEDS: MONTELUKAST 10 MG TABLET PO SCH (08:04)
[2021-02-25] MEDS: ZINC SULFATE 220 MG CAPSULE PO SCH (08:04)
[2021-02-25] MEDS: METOPROLOL TARTRATE 50 MG TABLET PO SCH ×2 (08:04→20:05)
[2021-02-25] MEDS: SIMVASTATIN 80 MG TABLET PO SCH (08:05)
[2021-02-25] MEDS: ASCORBIC ACID 500 MG TABLET PO SCH ×2 (08:05→20:02)
[2021-02-25] MEDS: CHOLECALCIFEROL 1,000 UNIT TABLET PO SCH (08:06)
[2021-02-25] MEDS: methylPREDNISolone SOD SUC 40 MG/1 ML VIAL IV SCH ×2 (09:09→17:09)
[2021-02-25] MEDS ORDERED: NOREPINEPHRINE 16 MG in SODIUM CHLORIDE 0.9% 234 ML IV PRN (14:24)
[2021-02-25] MEDS ORDERED: NOREPINEPHRINE 4 MG/4 ML VIAL IV ONE (14:28)
[2021-02-25] MEDS: ROCURONIUM 1,000 MG in SODIUM CHLORIDE 0.9% 175 ML IV PRN (16:24)
[2021-02-25] MEDS: LURASIDONE 40 MG TABLET PO SCH (20:02)
[2021-02-25] MEDS: FAMOTIDINE 20 MG TABLET PO SCH (20:02)
[2021-02-25] MEDS: HALOPERIDOL 5 MG TABLET PO SCH (20:02)
[2021-02-25] MEDS: INSULIN GLARGINE 100 UNIT/ML SUBCUT SCH (20:03)
[2021-02-26] MEDS: methylPREDNISolone SOD SUC 40 MG/1 ML VIAL IV SCH ×3 (00:03→17:30)
[2021-02-26] MEDS: ALBUTEROL INHALER 18 GM INH SCH ×6 (00:03→18:29)
[2021-02-26] MEDS: METOCLOPRAMIDE 10 MG/2 ML VIAL IV SCH ×4 (00:05→17:48)
[2021-02-26] MEDS: INSULIN LISPRO 100 UNIT/ML SUBCUT SCH ×6 (00:38→20:38)
[2021-02-26 04:04] LABS: Basophils % 0.1 % (0.0-0.8); Hematocrit 26.5 VOL% (42.0-52.0); Immature Granulocytes % 2.6 %; Immature Granulocytes Absolute 0.68 #; Lymphocytes # 0.5 10*3/uL (1.4-4.0); Mean Corpuscular Volume 79.6 FL (87-102); Mean Platelet Volume 12.9 FL (9.6-12.0); Monocytes % 1.6 % (1.7-12.7); Neutrophils % 93.7 % (38.7-73.9); Platelet Count 159 T/CUMM (130-400); Red Blood Count 3.33 MC/CUMM (3.8-5.5); Red Cell Distribution Width 14.9 % (9.3-17.3); White Blood Count 26.3 T/CUMM (4-12)
[2021-02-26 04:25] LABS: Calcium 7.5 MG/DL (8.5-10.1); Osmolality,Calculated 305.1 MOS/KG (273-304); Potassium 5.3 MMOL/L (3.5-5.1)
[2021-02-26 04:28] LABS: ABG Base Excess -6.4 MMOL/L (-2.5-2.5); ABG HCO3 19.1 MMOL/L (20-26); ABG Oxygen Saturation 90.4 % (95-100); ABG PCO2 48.2 MM HG (35-48); ABG PH 7.245 (7.35-7.45); ABG PO2 72.8 MM HG (80-95); ABG TCO2 19.6 MMOL/L (23-27)
[2021-02-26 04:40] LABS: Hypochromasia Slight; Lymphocytes 3 % (20-55); Microcytosis Slight; Platelet Estimate Normal; Segmented Neutrophils 97 % (50-85); Total Cells Counted 100
[2021-02-26] MEDS: THYROID 60 MG TABLET PO SCH (06:07)
[2021-02-26] MEDS: BUDESONIDE/FORMOTEROL 160-4.5 INHALER 6 GM INH SCH ×2 (06:09→18:29)
[2021-02-26] MEDS: HEPARIN DRIP 25,000 UNITS/500 ML PREMIX IV SCH ×2 (08:17→16:52)
[2021-02-26] MEDS: MONTELUKAST 10 MG TABLET PO SCH (08:20)
[2021-02-26] MEDS: METOPROLOL TARTRATE 50 MG TABLET PO SCH ×2 (08:20→20:38)
[2021-02-26] MEDS: ZINC SULFATE 220 MG CAPSULE PO SCH (08:21)
[2021-02-26] MEDS: CHOLECALCIFEROL 1,000 UNIT TABLET PO SCH (08:21)
[2021-02-26] MEDS: ASCORBIC ACID 500 MG TABLET PO SCH ×2 (08:21→20:38)
[2021-02-26] MEDS: SIMVASTATIN 80 MG TABLET PO SCH (08:21)
[2021-02-26] MEDS: LEVOFLOXACIN INJ 500 MG in PREMIX 1 EACH IV SCH (08:23)
[2021-02-26] MEDS: CYANOCOBALAMIN 500 MCG TABLET PO SCH (08:23)
[2021-02-26] MEDS: fentaNYL INJ 2,500 MCG in SODIUM CHLORIDE 0.9% 75 ML IV PRN (10:15)
[2021-02-26] MEDS: ROCURONIUM 1,000 MG in SODIUM CHLORIDE 0.9% 175 ML IV PRN (11:56)
[2021-02-26] MEDS: MINERAL OIL/PETROLATUM OPH OINT 3.5 GM TUBE BOTH EYES SCH ×2 (16:48→20:50)
[2021-02-26] MEDS ORDERED: INSULIN GLARGINE 100 UNIT/ML SUBCUT ONE (18:01)
[2021-02-26] MEDS: INSULIN GLARGINE 100 UNIT/ML SUBCUT SCH (18:08)
[2021-02-26] MEDS: FAMOTIDINE 20 MG TABLET PO SCH (20:38)
[2021-02-26] MEDS: HALOPERIDOL 5 MG TABLET PO SCH (20:38)
[2021-02-26] MEDS: LURASIDONE 40 MG TABLET PO SCH (20:38)
[2021-02-26] MEDS ORDERED: INSULIN GLARGINE 100 UNIT/ML SUBCUT SCH (21:00)
[2021-02-26] MEDS: MIDAZOLAM 100 MG in SODIUM CHLORIDE 0.9% 80 ML IV PRN ×2 (21:20)
[2021-02-27] MEDS: methylPREDNISolone SOD SUC 40 MG/1 ML VIAL IV SCH ×3 (00:44→20:44)
[2021-02-27] MEDS: METOCLOPRAMIDE 10 MG/2 ML VIAL IV SCH ×5 (00:45→23:53)
[2021-02-27] MEDS: MINERAL OIL/PETROLATUM OPH OINT 3.5 GM TUBE BOTH EYES SCH ×3 (00:52→08:36)
[2021-02-27] MEDS: ALBUTEROL INHALER 18 GM INH SCH ×7 (00:52→23:25)
[2021-02-27] MEDS: INSULIN LISPRO 100 UNIT/ML SUBCUT SCH ×7 (00:52→23:59)
[2021-02-27 04:38] LABS: ABG Base Excess -6.7 MMOL/L (-2.5-2.5); ABG HCO3 18.8 MMOL/L (20-26); ABG Oxygen Saturation 89.4 % (95-100); ABG PCO2 47.4 MM HG (35-48); ABG PH 7.248 (7.35-7.45); ABG PO2 69.2 MM HG (80-95); Allen Test Positive; Pt O2 Delivery Device Ventilator
[2021-02-27 05:16] LABS: Basophils # 0.1 10*3/uL (0.0-0.2); Basophils % 0.1 % (0.0-0.8); Hematocrit 28.8 VOL% (42.0-52.0); Immature Granulocytes % 3.8 %; Immature Granulocytes Absolute 1.39 #; Lymphocytes # 0.4 10*3/uL (1.4-4.0); Lymphocytes % 1.1 % (21.2-54.2); Mean Corpuscular HGB Conc 34.4 GM/DL (32-36); Mean Corpuscular Volume 79.6 FL (87-102); Mean Platelet Volume 11.7 FL (9.6-12.0); Monocytes % 2.7 % (1.7-12.7); NRBC # 0.04 10*3/uL; Neutrophils % 92.3 % (38.7-73.9); Red Cell Distribution Width 15.2 % (9.3-17.3)
[2021-02-27 05:25] LABS: Hemoglobin 9.9 GM/DL (14.0-18.0); Platelet Count 226 T/CUMM (130-400); Red Blood Count 3.62 MC/CUMM (3.8-5.5); White Blood Count 36.1 T/CUMM (4-12)
[2021-02-27 05:43] LABS: Lymphocytes 5 % (20-55); Platelet Estimate Normal; Segmented Neutrophils 90 % (50-85); Total Cells Counted 100
[2021-02-27 05:54] LABS: Albumin 1.8 G/DL (3.4-5.0); Calcium 7.8 MG/DL (8.5-10.1); Osmolality,Calculated 307.4 MOS/KG (273-304); Potassium 5.1 MMOL/L (3.5-5.1); Total Protein 5.4 G/DL (6.4-8.2)
[2021-02-27] MEDS: THYROID 60 MG TABLET PO SCH (06:14)
[2021-02-27] MEDS: BUDESONIDE/FORMOTEROL 160-4.5 INHALER 6 GM INH SCH ×2 (06:14→19:39)
[2021-02-27] MEDS: SIMVASTATIN 80 MG TABLET PO SCH (08:01)
[2021-02-27] MEDS: ASCORBIC ACID 500 MG TABLET PO SCH ×2 (08:01→20:30)
[2021-02-27] MEDS: CHOLECALCIFEROL 1,000 UNIT TABLET PO SCH (08:01)
[2021-02-27] MEDS: MONTELUKAST 10 MG TABLET PO SCH (08:01)
[2021-02-27] MEDS: METOPROLOL TARTRATE 50 MG TABLET PO SCH ×2 (08:01→20:30)
[2021-02-27] MEDS: ZINC SULFATE 220 MG CAPSULE PO SCH (08:02)
[2021-02-27] MEDS: HEPARIN DRIP 25,000 UNITS/500 ML PREMIX IV SCH (08:36)
[2021-02-27] MEDS ORDERED: MINERAL OIL/PETROLATUM OPH OINT 3.5 GM TUBE BOTH EYES PRN (10:32)
[2021-02-27] MEDS ORDERED: SODIUM BICARBONATE 50 MEQ/50 ML VIAL IV ONE (13:51)
[2021-02-27 14:03] LABS: ABG Base Excess -6.7 MMOL/L (-2.5-2.5); ABG HCO3 18.7 MMOL/L (20-26); ABG Oxygen Saturation 82.5 % (95-100); ABG PCO2 49.1 MM HG (35-48); ABG PH 7.237 (7.35-7.45); ABG PO2 59.4 MM HG (80-95); ABG TCO2 19.4 MMOL/L (23-27); Allen Test Positive; Pt O2 Delivery Device Ventilator
[2021-02-27] MEDS: FLUCONAZOLE INJ 200 MG in PREMIX 1 EACH IV SCH (14:24)
[2021-02-27] MEDS ORDERED: HEPARIN LOCK FLUSH 500 UNIT/5 ML SYRINGE IV ONE (17:30)
[2021-02-27] MEDS: FAMOTIDINE 20 MG TABLET PO SCH (20:30)
[2021-02-27] MEDS: LURASIDONE 40 MG TABLET PO SCH (20:30)
[2021-02-27] MEDS: INSULIN GLARGINE 100 UNIT/ML SUBCUT SCH (20:30)
[2021-02-27] MEDS: HALOPERIDOL 5 MG TABLET PO SCH (20:30)
[2021-02-27] MEDS: MIDAZOLAM 100 MG in SODIUM CHLORIDE 0.9% 80 ML IV PRN (21:28)
[2021-02-28 03:31] LABS: Basophils # 0.1 10*3/uL (0.0-0.2); Basophils % 0.2 % (0.0-0.8); Hematocrit 28.9 VOL% (42.0-52.0); Hemoglobin 9.8 GM/DL (14.0-18.0); Immature Granulocytes % 2.3 %; Immature Granulocytes Absolute 0.69 #; Lymphocytes # 0.3 10*3/uL (1.4-4.0); Lymphocytes % 0.9 % (21.2-54.2); Mean Corpuscular HGB Conc 33.9 GM/DL (32-36); Mean Corpuscular Volume 80.5 FL (87-102); Monocytes % 3.1 % (1.7-12.7); NRBC # 0.09 10*3/uL; Neutrophils % 93.5 % (38.7-73.9); Platelet Count 209 T/CUMM (130-400); Red Blood Count 3.59 MC/CUMM (3.8-5.5); Red Cell Distribution Width 15.9 % (9.3-17.3); White Blood Count 30.4 T/CUMM (4-12)
[2021-02-28 03:47] LABS: Calcium 7.3 MG/DL (8.5-10.1); Osmolality,Calculated 313.7 MOS/KG (273-304); Potassium 5.4 MMOL/L (3.5-5.1)
[2021-02-28 03:57] LABS: Allen Test Positive; Pt O2 Delivery Device Ventilator
[2021-02-28 03:58] LABS: ABG Base Excess -8.5 MMOL/L (-2.5-2.5); ABG HCO3 17.4 MMOL/L (20-26); ABG Oxygen Saturation 84.7 % (95-100); ABG PCO2 44.2 MM HG (35-48); ABG PH 7.236 (7.35-7.45); ABG PO2 62.3 MM HG (80-95); ABG TCO2 17.5 MMOL/L (23-27)
[2021-02-28 04:00] LABS: Hypochromasia Slight; Microcytosis 1+; Platelet Estimate Normal; Segmented Neutrophils 4 % (50-85); Total Cells Counted 100
[2021-02-28] MEDS: ALBUTEROL INHALER 18 GM INH SCH ×6 (05:03→23:57)
[2021-02-28] MEDS: INSULIN LISPRO 100 UNIT/ML SUBCUT SCH ×5 (05:04→20:26)
[2021-02-28] MEDS: THYROID 60 MG TABLET PO SCH (06:34)
[2021-02-28] MEDS: METOCLOPRAMIDE 10 MG/2 ML VIAL IV SCH ×3 (06:34→18:05)
[2021-02-28] MEDS: HEPARIN DRIP 25,000 UNITS/500 ML PREMIX IV SCH ×2 (07:02→08:59)
[2021-02-28] MEDS: MONTELUKAST 10 MG TABLET PO SCH (08:20)
[2021-02-28] MEDS: ZINC SULFATE 220 MG CAPSULE PO SCH (08:20)
[2021-02-28] MEDS: METOPROLOL TARTRATE 50 MG TABLET PO SCH ×2 (08:21→20:25)
[2021-02-28] MEDS: CHOLECALCIFEROL 1,000 UNIT TABLET PO SCH (08:21)
[2021-02-28] MEDS: ASCORBIC ACID 500 MG TABLET PO SCH ×2 (08:21→20:25)
[2021-02-28] MEDS: CYANOCOBALAMIN 500 MCG TABLET PO SCH (08:22)
[2021-02-28] MEDS: SIMVASTATIN 80 MG TABLET PO SCH (08:22)
[2021-02-28] MEDS: methylPREDNISolone SOD SUC 40 MG/1 ML VIAL IV SCH ×2 (08:23→20:40)
[2021-02-28] MEDS: LEVOFLOXACIN INJ 500 MG in PREMIX 1 EACH IV SCH (08:34)
[2021-02-28] MEDS: BUDESONIDE/FORMOTEROL 160-4.5 INHALER 6 GM INH SCH (08:59)
[2021-02-28] MEDS: FLUCONAZOLE INJ 200 MG in PREMIX 1 EACH IV SCH (16:28)
[2021-02-28] MEDS: MIDAZOLAM 100 MG in SODIUM CHLORIDE 0.9% 80 ML IV PRN (17:41)
[2021-02-28] MEDS: FAMOTIDINE 20 MG TABLET PO SCH (20:25)
[2021-02-28] MEDS: LURASIDONE 40 MG TABLET PO SCH (20:25)
[2021-02-28] MEDS: HALOPERIDOL 5 MG TABLET PO SCH (20:25)
[2021-02-28] MEDS: INSULIN GLARGINE 100 UNIT/ML SUBCUT SCH (20:26)
[2021-02-28] MEDS ORDERED: METOPROLOL TARTRATE 5 MG/5 ML VIAL IV ONE (23:06)
[2021-02-28] MEDS ORDERED: PHENYLEPHRINE DRIP 40 MG/250 ML PREMIX IV PRN (23:07)
[2021-03-01] MEDS: NOREPINEPHRINE 16 MG in SODIUM CHLORIDE 0.9% 234 ML IV PRN ×3 (00:45→17:19)
[2021-03-01] MEDS: INSULIN LISPRO 100 UNIT/ML SUBCUT SCH ×6 (01:29→20:41)
[2021-03-01] MEDS: METOCLOPRAMIDE 10 MG/2 ML VIAL IV SCH ×5 (01:39→23:43)
[2021-03-01 03:03] LABS: ABG Base Excess -9.9 MMOL/L (-2.5-2.5); ABG HCO3 17.9 MMOL/L (20-26); ABG Oxygen Saturation 83.4 % (95-100); ABG PCO2 47.4 MM HG (35-48); ABG PO2 62.4 MM HG (80-95); ABG TCO2 19.4 MMOL/L (23-27)
[2021-03-01 03:05] LABS: ABG PH 7.196 (7.35-7.45)
[2021-03-01] MEDS ORDERED: SODIUM BICARBONATE 50 MEQ/50 ML VIAL IV ONE (03:35)
[2021-03-01] MEDS: ALBUTEROL INHALER 18 GM INH SCH ×6 (03:55→23:50)
[2021-03-01 03:58] LABS: Basophils # 0.1 10*3/uL (0.0-0.2); Basophils % 0.2 % (0.0-0.8); Hematocrit 30.6 VOL% (42.0-52.0); Hemoglobin 10.3 GM/DL (14.0-18.0); Immature Granulocytes % 3.3 %; Immature Granulocytes Absolute 1.74 #; Lymphocytes # 0.4 10*3/uL (1.4-4.0); Lymphocytes % 0.7 % (21.2-54.2); Mean Corpuscular HGB Conc 33.7 GM/DL (32-36); Mean Corpuscular Volume 81.4 FL (87-102); Mean Platelet Volume 12.2 FL (9.6-12.0); Monocytes % 3.1 % (1.7-12.7); NRBC # 0.48 10*3/uL; Neutrophils % 92.7 % (38.7-73.9); Platelet Count 172 T/CUMM (130-400); Red Blood Count 3.76 MC/CUMM (3.8-5.5); Red Cell Distribution Width 16.4 % (9.3-17.3)
[2021-03-01 04:04] LABS: White Blood Count 52.7 T/CUMM (4-12)
[2021-03-01 04:08] LABS: Calcium 7.2 MG/DL (8.5-10.1); Osmolality,Calculated 306.1 MOS/KG (273-304); Potassium 5.5 MMOL/L (3.5-5.1)
[2021-03-01 04:32] LABS: Band Neutrophils 1 % (0-10); Lymphocytes 1 % (20-55); Metamyelocytes 2 %; Nucleated Red Blood Cells 2 (0-5); Segmented Neutrophils 94 % (50-85); Total Cells Counted 100
[2021-03-01 04:33] LABS: Hypochromasia 1+; Microcytosis 1+; Polychromasia Slight; Target Cells Slight
[2021-03-01] MEDS: THYROID 60 MG TABLET PO SCH (06:01)
[2021-03-01] MEDS: methylPREDNISolone SOD SUC 40 MG/1 ML VIAL IV SCH ×2 (07:54→20:56)
[2021-03-01] MEDS: HEPARIN DRIP 25,000 UNITS/500 ML PREMIX IV SCH ×2 (07:58→09:42)
[2021-03-01] MEDS: CHOLECALCIFEROL 1,000 UNIT TABLET PO SCH (08:01)
[2021-03-01] MEDS: ASCORBIC ACID 500 MG TABLET PO SCH ×2 (08:01→20:55)
[2021-03-01] MEDS: MONTELUKAST 10 MG TABLET PO SCH (08:01)
[2021-03-01] MEDS: SIMVASTATIN 80 MG TABLET PO SCH (08:01)
[2021-03-01] MEDS: ZINC SULFATE 220 MG CAPSULE PO SCH (08:01)
[2021-03-01] MEDS: METOPROLOL TARTRATE 50 MG TABLET PO SCH ×2 (08:02→20:42)
[2021-03-01] MEDS ORDERED: NOREPINEPHRINE 4 MG/4 ML VIAL IV ONE ×2 (08:20→17:13)
[2021-03-01] MEDS: FLUCONAZOLE INJ 200 MG in PREMIX 1 EACH IV SCH (14:57)
[2021-03-01] MEDS: MIDAZOLAM 100 MG in SODIUM CHLORIDE 0.9% 80 ML IV PRN (15:28)
[2021-03-01] MEDS: fentaNYL INJ 2,500 MCG in SODIUM CHLORIDE 0.9% 75 ML IV PRN (20:06)
[2021-03-01] MEDS: DEXTROSE 50% 25 GM/50 ML VIAL IV PRN ×2 (20:23→23:54)
[2021-03-01] MEDS: INSULIN GLARGINE 100 UNIT/ML SUBCUT SCH (20:42)
[2021-03-01] MEDS: LURASIDONE 40 MG TABLET PO SCH (20:55)
[2021-03-01] MEDS: FAMOTIDINE 20 MG TABLET PO SCH (20:55)
[2021-03-01] MEDS: HALOPERIDOL 5 MG TABLET PO SCH (20:55)
[2021-03-02] MEDS: INSULIN LISPRO 100 UNIT/ML SUBCUT SCH ×2 (00:41→04:29)
[2021-03-02] MEDS: ALBUTEROL INHALER 18 GM INH SCH (03:06)
== END 2021-03-02 03:45 | disposition expired | DRG 207 ==
LOC: N.ED 10:26 → N.2E 10:26 → N.EDINP 12:10 → SUATTDRO 12:10 → N.2E 13:00 → UNDODISIN 13:07 → N.CC 02-15 10:42
PROVIDERS: ADMIT Internal Medicine; ATTEND Internal Medicine